=== PATIENT | male | born 1965 | race Hispanic/Latino ===

== ENCOUNTER 2019-03-01 07:49 | Emergency (ER) | payer OTHER ==
[2019-03-01 08:00] VITALS: RESP 18; TEMP 98.3
[2019-03-01 08:33] LABS: BASO # 0.03 K/mm3 (0.0-2.0); BASO % 0.4 % (0.0-3.0); EOS # 0.4 (0.0-0.7); EOS % 4.3 % (1.5-5.0); LYMPH # 2.4 (1.2-3.4); LYMPH % 28.8 % (22.0-35.0); MEAN CORPUSCULAR HGB CONC 31.9 g/dl (31.0-37.0); MEAN PLATELET VOLUME 10.8 fl (7.0-11.0); MONO # 0.6 (0.1-0.6); MONO % 7.7 % (1.0-6.0); RBC 5.91 10^6/uL (3.5-6.1); RED CELL DISTRIBUTION WIDTH 15.4 % (11.5-14.5); WHITE BLOOD COUNT 8.2 10^3/uL (4.5-11.0)
--- NOTE | 2019-03-01 08:34 | ED PDOC ---
Arrival/HPI - General Chief Complaint: Lower Extremity Problem/Injury Time Seen by Provider: 03/01/19 07:55 Historian: Patient - History of Present Illness Narrative History of Present Illness (Text): 03/01/19 08:35 A 54 year old [place]-speaking male (phone translation provided, ID#[id number]) whose past medical history includes hyperlipidemia (diet controlled) and hernia, who presents to the ED complaining of right leg pain for the past 3 days. Patient reports he was pushing a car when a strong pain started in his right calf. Patient was concerned upon noticing bruises on his right calf and foot, and presented to ED for a check up. Patient notes numbness to sole of right foot yesterday, but not currently. Patient denies any fevers, chills, headache, dizziness, chest pain, shortness of breath, dyspnea on exertion, cough, ab dominal pain, nausea, vomiting, diarrhea, back pain, neck pain, urinary/bowel changes, or any other complaints. Time/Duration: < week (3 days) Symptom Onset: Gradual (`) Symptom Course: Unchanged Activities at Onset: Other (Pushing car) Context: Street Past Medical History - Provider Review Nursing Documentation Reviewed: Yes - Psychiatric Hx Substance Use: No Family/Social History - Physician Review Nursing Documentation Reviewed: Yes Family/Social History: Unknown Family HX Smoking Status: Former Smoker Hx Alcohol Use: Yes Frequency of alcohol use: Socially Hx Substance Use: No Allergies/Home Meds Allergies/Adverse Reactions: Allergies No Known Allergies Allergy (Verified 03/01/19 08:00) Review of Systems - Physician Review All systems were reviewed & negative as marked: Yes - Review of Systems Constitutional: Normal. absent: Fatigue, Fevers Eyes: Normal. absent: Vision Changes ENT: Normal. absent: Hearing Changes, Rhinorrhea Respiratory: Normal. absent: SOB, Cough Cardiovascular: Normal. absent: Chest Pain Gastrointestinal: Normal. absent: Abdominal Pain, Nausea, Vomiting Genitourinary Male: Normal. absent: Dysuria, Hematuria Musculoskeletal: Other (right calf pain). absent: Back Pain, Neck Pain Skin: Normal. absent: Rash Neurological: Normal. absent: Headache, Dizziness Endocrine: Normal. absent: Diaphoresis, Polyuria Hemo/Lymphatic: Normal. absent: Adenopathy Psychiatric: Normal. absent: Anxiety, Depression Physical Exam Vital Signs Reviewed: Yes Vital Signs Temp Pulse Resp BP Pulse Ox 03/01/19 07:50 98.3 F 68 18 116/57 L 95 Temperature: Afebrile Blood Pressure: Hypertensive Pulse: Regular Respiratory Rate: Normal Appearance: Positive for: Well-Appearing, Non-Toxic, Comfortable Pain Distress: None Mental Status: Positive for: Alert and Oriented X 3 - Systems Exam Head: Present: Atraumatic, Normocephalic Pupils: Present: PERRL Extroacular Muscles: Present: EOMI Conjunctiva: Present: Normal Mouth: Present: Moist Mucous Membranes Neck: Present: Normal Range of Motion Respiratory/Chest: Present: Clear to Auscultation, Good Air Exchange. No: Respiratory Distress, Accessory Muscle Use Cardiovascular: Present: Regular Rate and Rhythm, Normal S1, S2. No: Murmurs Abdomen: No: Tenderness, Distention, Peritoneal Signs Upper Extremity: Present: Normal Inspection. No: Cyanosis, Edema Lower Extremity: Present: CALF TENDERNESS (Right lower calf and foot tenderness), NORMAL PULSES, Swelling (Slight right lower calf swelling), Neurovascularly Intact, Capillary Refill < 2 s, Other (Ecchymosis on lower calf and foot) Neurological: Present: GCS=15, CN II-XII Intact, Speech Normal Skin: Present: Warm, Dry, Normal Color. No: Rashes Psychiatric: Present: Alert, Oriented x 3, Normal Insight, Normal Concentration Medical Decision Making ED Course and Treatment: 03/01/19 08:57 Impression: A 54 year old male who presents to the ED for right leg pain. Differential Diagnosis included but are not limited to: DVT vs musculoskeletal pain. Plan: -- Toradol -- IV Fluids -- Lower Extremity X-Ray -- Lower extremity ultrasound -- Reassess and disposition Prior Visits: Notes and results from previous visits were reviewed. Progress Notes: 03/01/19 09:40 Spoke to [employer], reports US negative for DVT. Tibia/Fibula X-Ray IMPRESSION: There is a healed fracture in the distal fibula. There are no acute findings. Ankle X-Ray IMPRESSION: Normal right ankle radiographs Extremity US IMPRESSION: No sonographic evidence for deep venous thrombosis in the visualized segments of the right lower abdomen. 03/01/19 10:[address] Bridges (orthopedics), who suggests patient follow up with him on Monday. Also suggests, posterior lower leg splint, crutches, rest, ice and elevation of leg. Patient placed in a posterior splint by EMT Francisco. Neurovascularily intact post splint placement. Crutches given with instructions. Patient given discharge instructions by me via phone translation services #[phone] and he repeated back to me that he needs to follow up with Dr. Austin on Monday and needs crutches with splint. Nonweightbearing till appt and take motrin for pain. rest ice and elevation. Patient given address and phone number for follow up. - RAD Interpretation Radiology Orders: 03/01/19 08:18 DUPLEX LOWER EXTRM VEIN RIGHT [US] Stat 03/01/19 08:24 ANKLE RIGHT 3 VIEWS ROUTINE [RAD] Stat TIBIA FIBULA RIGHT [RAD] Stat - Medication Orders Current Medication Orders: Discontinued Medications Ketorolac Tromethamine (Toradol) 30 mg IVP STAT STA Stop: 03/01/19 08:20 - Scribe Statement The provider has reviewed the documentation as recorded by the Lichaibelbert Garza Provider Scribe Attestation: All medical record entries made by the Scribe were at my direction and personally dictated by me. I have reviewed the chart and agree that the record accurately reflects my personal performance of the history, physical exam, medical decision making, and the department course for this patient. I have also personally directed, reviewed, and agree with the discharge instructions and disposition. Disposition/Present on Arrival - Present on Arrival Any Indicators Present on Arrival: No History of DVT/PE: No History of Uncontrolled Diabetes: No Urinary Catheter: No History of Decub. Ulcer: No - Disposition Have Diagnosis and Disposition been Completed?: Yes Diagnosis: Fibula fracture Disposition: HOME/ ROUTINE Disposition Time: 12:06 Patient Plan: Discharge Condition: IMPROVED Discharge Instructions (ExitCare): Fibula Fracture (DC) Additional Instructions: CAMILLE LUO, thank you for letting us take care of you today. Your provider was Cristian Anaya DO and you were treated for Fibular Fracture. The emergency medical care you received today was directed at your acute symptoms. If you were prescribed any medication, please fill it and take as directed. It may take several days for your symptoms to resolve. Return to the Emergency Department if your symptoms worsen, do not improve, or if you have any other problems. Make sure to follow up with Dr. Bridges on Monday03/04/18 for evaluation of your fracture. Stay on crutches. Rest, ice and elevate. Keep your splint in place till followup. Please contact your doctor or call one of the physicians/clinics you have been referred to that are listed on the Patient Visit Information form that is included in your discharge packet. Bring any paperwork you were given at discharge with you along with any medications you are taking to your follow up visit. Our treatment cannot replace ongoing medical care by a primary care provider outside of the emergency department. Thank you for allowing the [facility] team to be part of your care today. If you had an X-Ray or CT scan: A Radiologist will review the ED reading if any change in treatment is needed we will contact you. If you had a blood, urine, or wound culture: It will take several days for the results, if any change in treatment is needed we will contact you. If you had an STI test: It will take 48 hours for the results. Please call after 1 week if you have not heard back. Prescriptions: Ibuprofen [Motrin] 600 mg PO Q6 PRN #30 tab PRN Reason: Pain, Moderate (4-7) Referrals: Shailesh Bridges, [Staff Provider] - Follow up with primary Forms: [employer] ([place]an), WORK NOTE
[2019-03-01 08:43] LABS: ALB/GLOB RATIO 1.1 (1.1-1.8); ALBUMIN 3.8 g/dL (3.0-4.8); ALT/SGPT 20 U/L (7-56); AST/SGOT 43 U/L (17-59); BLOOD UREA NITROGEN 23 mg/dL (7-21); CALCIUM 8.9 mg/dL (8.4-10.5); GFR NON-AFRICAN AMERICAN > 60
[2019-03-01 08:46] LABS: INR 1.14; PARTIAL THROMBOPLASTIN TIME 33.2 Seconds (26.9-38.3); PROTHROMBIN TIME 12.9 SECONDS (9.4-12.5)
--- NOTE | 2019-03-01 10:01 | RAD ---
Date of service: 03/01/2019 PROCEDURE: Radiographs of the right tibia and fibula. HISTORY: pain r/o fx COMPARISON: None available TECHNIQUE: Frontal and lateral views obtained. 2 views obtained. FINDINGS: BONES: There is a healed fracture in the distal fibula. There are no acute findings JOINT SPACES: Unremarkable. OTHER FINDINGS: None. IMPRESSION: There is a healed fracture in the distal fibula. There are no acute findings
--- NOTE | 2019-03-01 10:02 | RAD ---
Date of service: 03/01/2019 PROCEDURE: Right Ankle Radiographs. HISTORY: pain r/o fx COMPARISON: None available. TECHNIQUE: 3 views obtained. FINDINGS: BONES: Normal. No fracture. JOINTS: Normal. No osteoarthritis. Ankle mortise maintained. Talar dome intact SOFT TISSUES: Normal. OTHER FINDINGS: None. IMPRESSION: Normal right ankle radiographs.
--- NOTE | 2019-03-01 11:14 | US ---
PROCEDURE: Right lower extremity venous US HISTORY: Leg pain and swelling. Evaluate for DVT. PHYSICIAN(S): Rashad Nguyen M.D. TECHNIQUE: Duplex sonography and color-flow Doppler with graded compression were used to evaluate the deep venous system of the right lower extremity. FINDINGS: The visualized deep venous system of the right lower extremity is sonographically normal and compressible. Normal waveforms and augmentation are seen. There is no sonographic evidence for deep venous thrombosis in the visualized segments of the right lower extremity. IMPRESSION: 1. No sonographic evidence for deep venous thrombosis in the visualized segments of the right lower extremity.
[2019-03-01 11:17] VITALS: BP 117/74; PULSE 54; O2SAT 97
== END 2019-03-01 12:06 | disposition home or self-care (01) ==
LOC: ED 07:49
DX: S82.831A Other fracture of upper and lower end of right fibula, initial encounter for closed fracture (principal); X50.9XXA Other and unspecified overexertion or strenuous movements or postures, initial encounter; E78.5 Hyperlipidemia, unspecified; Z87.891 Personal history of nicotine dependence
CPT/HCPCS: 73590; 73610; 80053; 83735; 85025; 85378; 85610; 85730; 93971; 96374; 99285; J1885